=== PATIENT | female | born 1965 | race American Indian/Alaskan Native ===

== ENCOUNTER 2016-11-07 14:23 | Emergency (ER) | payer MEDICAID ==
[2016-11-07 16:47] LABS: Basophils % (Auto) 0.1 % (0.0-1.8); Hematocrit 38.9 % (30.3-42.9); Hemoglobin 13.4 gm/dl (10.1-14.3); Mean Corpuscular HGB Conc 34 % (30-34); Mean Corpuscular Hemoglobin 31 pg (28-32); Mean Corpuscular Volume 90 fl (79-97); Platelet Count 286 K/mm3 (140-440); Red Blood Count 4.35 M/mm3 (3.65-5.03); Red Cell Distribution Width 13.4 % (13.2-15.2); White Blood Count 7.6 K/mm3 (4.5-11.0)
[2016-11-07 18:54] LABS: Bilirubin,Urine NEG (Negative); Blood,Urine LG (Negative); Ketones,Urine NEG (Negative); Leukocyte Esterase,Urine NEG (Negative); Nitrite,Urine NEG (Negative)
[2016-11-07 18:55] LABS: RBC,Urine > 182.0 /HPF (0.0-6.0)
[2016-11-07] MEDS ORDERED: NORCO 7.5/325 PO ONE (23:01)
[2016-11-07] MEDS ORDERED: ZOFRAN ODT PO ONE (23:02)
--- NOTE | 2016-11-07 23:15 | Emergency Department Report ---
HPI - General Chief Complaint: Vaginal Bleeding Time Seen by Provider: 11/07/16 22:44 - HPI HPI: The patient is a 51-year-old female presents for evaluation of abdominal pain. The patient reports suprapubic lower abdominal pain for the past one to 2 weeks , crampy in quality, 10/10 in severity, constant for the past one day, although waxing and waning, and associated with vaginal bleeding. She shares that she has experienced irregular menstrual periods for the past year. Her menstrual periods only, every 2-3 months now, last period 3 months ago. The patient denies fever, generalized weakness, dyspnea, chest pain, hemoptysis, hematemesis , easy bruising or bleeding, hematuria, blood in the stool, dark tarry stool, diarrhea, dysuria, flank pain, genital discharge, inability to pass flatus. ED Past Medical Hx - Past Medical History Hx Hypertension: Yes Hx CVA: Yes Hx Congestive Heart Failure: No Hx Diabetes: No Hx Headaches / Migraines: Yes Hx Seizures: Yes (03/26/2016) Hx Psychiatric Treatment: Yes (COCAINE DRUG ABUSE, DEPRESSION) Hx Asthma: No Hx COPD: No Additional medical history: fibromyalgia. MS - Surgical History Additional Surgical History: c/s x 2, tubal ligation - Social History Smoking Status: Never Smoker Substance Use Type: None - Medications Home Medications: Home Medications Medication Instructions Recorded Confirmed Last Taken Type Aspirin [Aspirin BABY CHEW TAB] 81 mg PO QDAY #30 tab.chew 10/22/15 06/16/16 1 Day Ago Rx [address] [[address] Dr] 1,000 mg PO HS #30 tablet 10/22/15 06/16/16 1 Day Ago Rx 1000 Nitroglycerin [Nitrostat] 0.4 mg SL Q5M PRN #30 tablet 10/22/15 06/16/16 1 Day Ago Rx 0.4 Simvastatin [Zocor TAB] 10 mg PO QHS #30 tablet 10/22/15 06/16/16 1 Day Ago Rx 10 Trazodone HCl 150 mg PO HS #30 tablet 10/22/15 06/16/16 1 Day Ago Rx 150 Cyclobenzaprine [Flexeril 10 MG 10 mg PO TID PRN #15 tablet 03/10/16 06/16/16 1 Day Ago Rx TAB] 10 DULoxetine [Cymbalta] 30 mg PO QDAY 30 Days 03/30/16 06/16/16 1 Day Ago Rx 30 Gabapentin [Neurontin] 600 mg PO QPM 30 Days 03/30/16 06/16/16 1 Day Ago Rx 600 oxyCODONE /ACETAMINOPHEN [Percocet 1 tab PO Q6H PRN #10 tablet 03/30/16 Unknown Rx 5/325 mg] Clopidogrel Bisulfate [Plavix] 75 mg PO QDAY #30 tablet 04/13/16 06/16/16 1 Day Ago Rx 75 traMADol [Ultram] 50 mg PO Q6HR PRN #14 tablet 04/13/16 06/16/16 Unknown Rx Dicyclomine [Bentyl] 10 mg PO QID PRN #20 capsule 06/10/16 06/16/16 Unknown Rx Famotidine [Pepcid] 20 mg PO BID #10 tablet 06/10/16 06/16/16 Unknown Rx Ondansetron [Zofran Odt] 4 mg PO QID PRN #20 tab.rapdis 06/10/16 06/16/16 Unknown Rx Acetaminophen/Codeine [Tylenol #3] 1 tab PO Q6H PRN #20 tab 06/16/16 Unknown Rx Magnesium Oxide/Mag Aa Chelate 400 mg PO DAILY 06/16/16 06/16/16 Unknown History [Magnesium 300 mg Capsule] HYDROcodone/APAP 7.5-325 [[place] 1 each PO Q8HR PRN #12 tablet 11/07/16 Unknown Rx 7.5-325 mg TAB] ED Review of Systems ROS: Stated complaint: VAG BLEEDING 13 DAYS Other details as noted in HPI Constitutional: denies: fever ENT: denies: throat or neck pain Respiratory: denies: cough, shortness of breath Cardiovascular: denies: chest pain Endocrine: denies unexplained weight loss or gain Gastrointestinal: reports abdominal pain, nausea Genitourinary: reports vaginal bleeding Musculoskeletal: denies: leg swelling Skin: denies: rash Neurological: denies: headache Hematological/Lymphatic: denies: easy bleeding or easy bruising Psych: denies sadness or hopelessness Physical Exam - Physical Exam Vital Signs: Vital Signs 11/07/16 16:10 Temperature 97.6 F Pulse Rate 72 Respiratory 18 Rate Blood Pressure 130/91 O2 Sat by Pulse 100 Oximetry Physical Exam: General: well-nourished, well-developed, no acute distress Head: Normocephalic, atraumatic Eyes: normal sclera ENT: Mucous membranes are pink and moist Neck: trachea midline, neck supple, No neck stiffness, no cervical adenopathy Respiratory: Breath sounds equal bilaterally, no wheezing, rales, or rhonchi Cardio: S1 and S2 present, no murmurs, rubs, gallops, capillary refill is brisk Abdomen: Normoactive bowel sounds, soft abdomen, suprapubic tenderness present, no rigidity, no guarding or rebound tenderness Musc: No pitting edema Skin: No rash Neuro: no facial drooping, normal speech Psych: Normal affect ED Course Vital Signs 11/07/16 16:10 Temperature 97.6 F Pulse Rate 72 Respiratory 18 Rate Blood Pressure 130/91 O2 Sat by Pulse 100 Oximetry ED Medical Decision Making - Lab Data Result diagrams: 11/07/16 16:30 - Medical Decision Making The patient was seen and examined by myself. The patient is placed on a cardiac catheterization technologist and continuous pulse ox. On initial evaluation, the patient was found to be in no distress. The patient is given a tablet of norco for abdominal pain. Evaluation orders are placed. Lab results were non-concerning including platelets, hemoglobin, hematocrit, neg preg test, and urinalysis. The patient declines US of the pelvis to investigate for potential uterine mass. The patient was reevaluated and reported that her symptoms were markedly improved. The patient is stable for discharge with outpatient follow-up. The patient is given follow-up and return instructions, including to follow-up with the [facility]. The patient expressed understanding and agreed with the plan. The patient is discharged in stable condition. Critical care attestation.: If time is entered above; I have spent that time in minutes in the direct care of this critically ill patient, excluding procedure time. ED Disposition Clinical Impression: Acute suprapubic pain, Abnormal vaginal bleeding Disposition: DISCHARGED TO HOME OR SELFCARE Is pt being admited?: No Does the pt Need Aspirin: No Condition: Stable Instructions: Acute Abdominal Pain (ED), Menorrhagia (ED) Referrals: [facility] [Provider Group] - 3-5 Days NADIR WILSON MD [Staff Physician] - 3-5 Days Time of Disposition: 23:04
[2016-11-08 00:42] VITALS: BP 132/70
== END 2016-11-08 00:45 | disposition home or self-care (01) ==
LOC: ED 14:23
DX: N93.8 Other specified abnormal uterine and vaginal bleeding (principal); R10.30 Lower abdominal pain, unspecified; Z86.73 Personal history of transient ischemic attack (TIA), and cerebral infarction without residual deficits; G43.909 Migraine, unspecified, not intractable, without status migrainosus; R56.9 Unspecified convulsions; F14.10 Cocaine abuse, uncomplicated; F32.9 Major depressive disorder, single episode, unspecified; Z98.51 Tubal ligation status; Z79.82 Long term (current) use of aspirin; Z88.6 Allergy status to analgesic agent; Z88.8 Allergy status to other drugs, medicaments and biological substances
CPT/HCPCS: 36415; 81001; 81025; 85025; 86850; 86900; 86901; 99284; Q0162

== ENCOUNTER 2016-12-05 14:30 | Emergency (ER) | payer MEDICAID ==
[2016-12-05 16:13] LABS: Basophils % (Auto) 0.1 % (0.0-1.8); Hematocrit 40.7 % (30.3-42.9); Hemoglobin 13.5 gm/dl (10.1-14.3); Mean Corpuscular HGB Conc 33 % (30-34); Mean Corpuscular Hemoglobin 30 pg (28-32); Mean Corpuscular Volume 91 fl (79-97); Platelet Count 269 K/mm3 (140-440); Red Blood Count 4.48 M/mm3 (3.65-5.03); Red Cell Distribution Width 13.1 % (13.2-15.2); White Blood Count 4.7 K/mm3 (4.5-11.0)
[2016-12-05 16:32] LABS: Alanine Aminotransferase 6 units/L (7-56); Albumin 4.3 g/dL (3.9-5); Albumin/Globulin Ratio 1.3 %; Alkaline Phosphatase 89 units/L (35-129); Anion Gap 16 mmol/L; Bilirubin,Total 0.2 mg/dL (0.1-1.2); Blood Urea Nitrogen 10 mg/dL (7-17); Calcium 8.9 mg/dL (8.4-10.2); Carbon Dioxide 26 mmol/L (22-30); Chloride 100.9 mmol/L (98-107); Glucose 110 mg/dL (65-100); Lipase 26 units/L (13-60); Potassium 4.6 mmol/L (3.6-5.0); Sodium 138 mmol/L (137-145); Total Protein 7.6 g/dL (6.3-8.2)
[2016-12-05 18:11] LABS: Bilirubin,Urine NEG (Negative); Blood,Urine NEG (Negative); Ketones,Urine NEG (Negative); Leukocyte Esterase,Urine NEG (Negative); Mucus,Urine FEW /HPF; Nitrite,Urine NEG (Negative); Protein,Urine <15 mg/dL mg/dL (Negative); Urobilinogen,Urine < 2.0 mg/dL (<2.0)
[2016-12-06 00:27] VITALS: BP 111/82
== END 2016-12-05 15:51 | disposition left against medical advice (07) ==
LOC: ED 14:30
DX: R10.9 Unspecified abdominal pain (principal); R06.00 Dyspnea, unspecified; R19.7 Diarrhea, unspecified; R11.0 Nausea; R42 Dizziness and giddiness; I10 Essential (primary) hypertension; G43.909 Migraine, unspecified, not intractable, without status migrainosus; F32.9 Major depressive disorder, single episode, unspecified; I63.9 Cerebral infarction, unspecified; Z88.6 Allergy status to analgesic agent; Z88.8 Allergy status to other drugs, medicaments and biological substances; Z53.21 Procedure and treatment not carried out due to patient leaving prior to being seen by health care provider
CPT/HCPCS: 36415; 80053; 81001; 81025; 83690; 85025; 93005; 93010

== ENCOUNTER 2017-04-02 19:26 | Emergency (ER) | payer MEDICAID ==
--- NOTE | 2017-04-02 20:31 | Cat Scan Report ---
FINAL REPORT PROCEDURE: CT HEAD/BRAIN WO CON TECHNIQUE: Computerized tomography of the head was performed without contrast material. HISTORY: neuro deficits \T\lt; 6hrs or sx present upon awakening COMPARISON: Head CT dated March 26, 2016 FINDINGS: The visualized portions of the paranasal sinuses are clear. Mastoid air cells are clear. There is no calvarial fracture. There is no hydrocephalus. No acute intracranial hemorrhage or mass effect is seen. There is no evidence of acute CVA. IMPRESSION: No abnormalities are seen.
[2017-04-02 20:59] LABS: Basophils % (Auto) 0.1 % (0.0-1.8); Hematocrit 41.3 % (30.3-42.9); Hemoglobin 14.1 gm/dl (10.1-14.3); INR 0.92 (0.87-1.13); Mean Corpuscular HGB Conc 34 % (30-34); Mean Corpuscular Hemoglobin 31 pg (28-32); Mean Corpuscular Volume 90 fl (79-97); Platelet Count 291 K/mm3 (140-440); Red Blood Count 4.61 M/mm3 (3.65-5.03); Red Cell Distribution Width 13.7 % (13.2-15.2)
[2017-04-02 21:00] LABS: Partial Thromboplastin Time 36.9 Sec. (24.2-36.6)
[2017-04-02 21:09] LABS: Anion Gap 19 mmol/L; BUN/Creatinine Ratio 11.11; Blood Urea Nitrogen 10 mg/dL (7-17); Calcium 9.2 mg/dL (8.4-10.2); Carbon Dioxide 23 mmol/L (22-30); Chloride 103.8 mmol/L (98-107); Glucose 95 mg/dL (65-100); Potassium 3.9 mmol/L (3.6-5.0); Sodium 142 mmol/L (137-145)
--- NOTE | 2017-04-03 10:28 | Emergency Department Report ---
ED General Adult HPI - General Chief complaint: Weakness Stated complaint: BACK NUMBNESS X 3 DAYS Time Seen by Provider: 04/03/17 10:16 Source: patient, EMS (ems notes not available at time of chart dictation), RN notes reviewed, old records reviewed Mode of arrival: Ambulatory Limitations: No Limitations - History of Present Illness Initial comments: This is a 51-year-old female. I have evaluated her in the past. Past medical history includes fibromyalgia, multiple sclerosis, depression, chronic pain and substance abuse. Primary care doctor is Dr. Cho. Neurologist is Dr. Langston, with [facility]. The patient presents to the ER with a complaint of tingling on the dorsal aspect of her bilateral feet, and tingling to the palmar aspect of her bilateral hands. This has been going on for 4 days. There is no headache, neck pain, shortness of breath, abdominal pain weakness, bladder or bowel retention or incontinence, saddle anesthesia. the symptoms have been intermittent. They do not have any exacerbating or relieving factors. The patient also describes posterior trapezius pain that radiates around to her anterior chest wall. This has been present for 2 days. There is no nausea, vomiting, diaphoresis. There is no leg pain or leg swelling. No recent trips greater than 4 hours. No recent surgeries. The symptoms have been present for the past 48 hours. -: Gradual, days(s) Location: chest, back, left, right, upper extremity, lower extremity Severity scale (0 -10): 10 Consistency: intermittent Improves with: none Worsens with: none Associated Symptoms: denies: confusion, cough, diaphoresis, headaches, loss of appetite, malaise, nausea/vomiting, shortness of breath, syncope, weakness - Related Data Home Medications Medication Instructions Recorded Confirmed Last Taken Magnesium Oxide/Mag Aa Chelate 400 mg PO DAILY 06/16/16 06/16/16 Unknown [Magnesium 300 mg Capsule] Previous Rx's Medication Instructions Recorded Last Taken Type Aspirin [Aspirin BABY CHEW TAB] 81 mg PO QDAY #30 tab.chew 10/22/15 1 Day Ago Rx 81 Divalproex [Sloan Cunha] 1,000 mg PO HS #30 tablet 10/22/15 1 Day Ago Rx 1000 Nitroglycerin [Nitrostat] 0.4 mg SL Q5M PRN #30 tablet 02/05/16 1 Day Ago Rx 0.4 Simvastatin [Zocor TAB] 10 mg PO QHS #30 tablet 10/22/15 1 Day Ago Rx 10 Trazodone HCl 150 mg PO HS #30 tablet 10/22/15 1 Day Ago Rx 150 Cyclobenzaprine [Flexeril 10 MG 10 mg PO TID PRN #15 tablet 03/10/16 1 Day Ago Rx TAB] 10 DULoxetine [Cymbalta] 30 mg PO QDAY 30 Days 03/30/16 1 Day Ago Rx 30 Gabapentin [Neurontin] 600 mg PO QPM 30 Days 03/30/16 1 Day Ago Rx 600 oxyCODONE /ACETAMINOPHEN [Percocet 1 tab PO Q6H PRN #10 tablet 03/30/16 Unknown Rx 5/325 mg] Clopidogrel Bisulfate [Plavix] 75 mg PO QDAY #30 tablet 04/13/16 1 Day Ago Rx 75 traMADol [Ultram] 50 mg PO Q6HR PRN #14 tablet 04/13/16 Unknown Rx Dicyclomine [Bentyl] 10 mg PO QID PRN #20 capsule 06/10/16 Unknown Rx Famotidine [Pepcid] 20 mg PO BID #10 tablet 06/10/16 Unknown Rx Ondansetron [Zofran Odt] 4 mg PO QID PRN #20 tab.rapdis 06/10/16 Unknown Rx Acetaminophen/Codeine [Tylenol #3] 1 tab PO Q6H PRN #20 tab 06/16/16 Unknown Rx HYDROcodone/APAP 7.5-325 [[place] 1 each PO Q8HR PRN #12 tablet 11/07/16 Unknown Rx 7.5-325 mg TAB] Allergies Allergy/AdvReac Type Severity Reaction Status Date / Time aspirin Allergy Rash Verified 07/26/15 20:05 promethazine HCl Allergy Unknown Verified 07/26/15 20:05 [From Phenergan] ED Review of Systems ROS: Stated complaint: BACK NUMBNESS X 3 DAYS Other details as noted in HPI Constitutional: denies: fever Eyes: denies: eye discharge ENT: denies: epistaxis Respiratory: see HPI Cardiovascular: as per HPI Gastrointestinal: denies: vomiting Musculoskeletal: arthralgia Skin: denies: lesions Neurological: paresthesias Psychiatric: anxiety ED Past Medical Hx - Past Medical History Previous Medical History?: Yes Hx Hypertension: Yes Hx CVA: Yes (TIA's) Hx Congestive Heart Failure: No Hx Diabetes: No Hx Headaches / Migraines: Yes Hx Seizures: Yes (03/26/2016) Hx Psychiatric Treatment: Yes (COCAINE DRUG ABUSE, DEPRESSION, anxeity) Hx Asthma: No Hx COPD: No Additional medical history: fibromyalgia. fatty liver - Surgical History Past Surgical History?: Yes Additional Surgical History: c/s x 2, tubal ligation - Social History Smoking Status: Never Smoker Substance Use Type: None - Medications Home Medications: Home Medications Medication Instructions Recorded Confirmed Last Taken Type Aspirin [Aspirin BABY CHEW TAB] 81 mg PO QDAY #30 tab.chew 10/22/15 06/16/16 1 Day Ago Rx [address] [Depakote Dr] 1,000 mg PO HS #30 tablet 10/22/15 06/16/16 1 Day Ago Rx 1000 Nitroglycerin [Nitrostat] 0.4 mg SL Q5M PRN #30 tablet 10/22/15 06/16/16 1 Day Ago Rx 0.4 Simvastatin [Zocor TAB] 10 mg PO QHS #30 tablet 10/22/15 06/16/16 1 Day Ago Rx 10 Trazodone HCl 150 mg PO HS #30 tablet 10/22/15 06/16/16 1 Day Ago Rx 150 Cyclobenzaprine [Flexeril 10 MG 10 mg PO TID PRN #15 tablet 03/10/16 06/16/16 1 Day Ago Rx TAB] 10 DULoxetine [Cymbalta] 30 mg PO QDAY 30 Days 03/30/16 06/16/16 1 Day Ago Rx 30 Gabapentin [Neurontin] 600 mg PO QPM 30 Days 03/30/16 06/16/16 1 Day Ago Rx 600 oxyCODONE /ACETAMINOPHEN [Percocet 1 tab PO Q6H PRN #10 tablet 03/30/16 Unknown Rx 5/325 mg] Clopidogrel Bisulfate [Plavix] 75 mg PO QDAY #30 tablet 04/13/16 06/16/16 1 Day Ago Rx 75 traMADol [Ultram] 50 mg PO Q6HR PRN #14 tablet 04/13/16 06/16/16 Unknown Rx Dicyclomine [Bentyl] 10 mg PO QID PRN #20 capsule 06/10/16 06/16/16 Unknown Rx Famotidine [Pepcid] 20 mg PO BID #10 tablet 06/10/16 06/16/16 Unknown Rx Ondansetron [Zofran Odt] 4 mg PO QID PRN #20 tab.rapdis 06/10/16 06/16/16 Unknown Rx Acetaminophen/Codeine [Tylenol #3] 1 tab PO Q6H PRN #20 tab 06/16/16 Unknown Rx Magnesium Oxide/Mag Aa Chelate 400 mg PO DAILY 06/16/16 06/16/16 Unknown History [Magnesium 300 mg Capsule] HYDROcodone/APAP 7.5-325 [[place] 1 each PO Q8HR PRN #12 tablet 11/07/16 Unknown Rx 7.5-325 mg TAB] ED Physical Exam - General Limitations: No Limitations General appearance: alert, in no apparent distress - Head Head exam: Present: atraumatic, normocephalic - Eye Eye exam: Present: normal appearance, EOMI, other (visual acuity intact to finger counting, color perception, reading at a close distance). Absent: nystagmus - ENT ENT exam: Present: normal exam, normal orophraynx, mucous membranes moist, normal external ear exam - Neck Neck exam: Present: normal inspection, full ROM. Absent: tenderness, meningismus - Respiratory Respiratory exam: Present: normal lung sounds bilaterally. Absent: respiratory distress, wheezes, rales, rhonchi, stridor, chest wall tenderness, accessory muscle use, decreased breath sounds, prolonged expiratory - Cardiovascular Cardiovascular Exam: Present: normal rhythm, bradycardia, normal heart sounds. Absent: systolic murmur, diastolic murmur, rubs, gallop - GI/Abdominal GI/Abdominal exam: Present: soft, normal bowel sounds. Absent: distended, tenderness, guarding, rebound, rigid, pulsatile mass - Extremities Exam Extremities exam: Present: normal inspection, full ROM, normal capillary refill. Absent: pedal edema, joint swelling, calf tenderness - Back Exam Back exam: Present: normal inspection, full ROM. Absent: tenderness, CVA tenderness (R), CVA tenderness (L), muscle spasm, paraspinal tenderness, vertebral tenderness - Neurological Exam Neurological exam: Present: alert (visual acuity intact to finger counting, color perception, reading at a close distance), oriented X3, normal gait ( patient walks with a cane), other (Extraocular movements intact. Tongue midline. No facial droop. Facial sensation intact to light touch in the V1, V2 , V3 distribution bilaterally. 5 and 5 strength in 4 extremities.. Sensation is intact to light touch in 4 extremities.). Absent: motor sensory deficit ( sensation intact to light touch, pain, proprioception and 4 extremities. Downgoing plantar reflexes bilaterally.) - Psychiatric Psychiatric exam: Present: normal affect, normal mood - Skin Skin exam: Present: warm, dry, intact, normal color. Absent: rash ED Course Vital Signs 04/02/17 04/03/17 04/03/17 19:42 04:27 05:28 Temperature 98.7 F 97.3 F L Pulse Rate 58 L 60 63 Respiratory 18 18 12 Rate Blood Pressure 117/84 125/91 O2 Sat by Pulse 100 100 100 Oximetry 04/03/17 04/03/17 04/03/17 05:30 05:41 05:51 Temperature Pulse Rate 53 L 54 L 51 L Respiratory 12 13 13 Rate Blood Pressure 125/81 125/81 126/72 O2 Sat by Pulse 100 100 100 Oximetry 04/03/17 04/03/17 04/03/17 06:00 06:11 06:21 Temperature Pulse Rate 50 L 52 L 51 L Respiratory 16 14 11 L Rate Blood Pressure 131/80 131/80 146/77 O2 Sat by Pulse 100 100 100 Oximetry 04/03/17 04/03/17 04/03/17 06:30 06:41 06:51 Temperature Pulse Rate 55 L 60 57 L Respiratory 15 13 13 Rate Blood Pressure 145/82 145/82 132/78 O2 Sat by Pulse 100 100 100 Oximetry 04/03/17 04/03/17 04/03/17 07:00 07:11 07:21 Temperature Pulse Rate 60 65 57 L Respiratory 14 11 L 15 Rate Blood Pressure 124/77 124/77 131/76 O2 Sat by Pulse 100 100 100 Oximetry 04/03/17 04/03/17 04/03/17 07:30 07:41 07:51 Temperature Pulse Rate 53 L 53 L 56 L Respiratory 13 14 12 Rate Blood Pressure 126/81 126/81 119/79 O2 Sat by Pulse 100 100 100 Oximetry 04/03/17 04/03/17 04/03/17 08:00 08:11 08:21 Temperature Pulse Rate 56 L 62 56 L Respiratory 14 10 L 16 Rate Blood Pressure 123/76 131/76 125/78 O2 Sat by Pulse 100 100 100 Oximetry 04/03/17 04/03/17 04/03/17 08:31 08:33 08:41 Temperature Pulse Rate 60 55 L Respiratory 13 18 14 Rate Blood Pressure 117/66 123/76 O2 Sat by Pulse 99 99 Oximetry 04/03/17 04/03/17 04/03/17 08:51 09:00 09:11 Temperature Pulse Rate 68 59 L 56 L Respiratory 10 L 12 12 Rate Blood Pressure 122/77 116/77 116/77 O2 Sat by Pulse 100 100 100 Oximetry 04/03/17 04/03/17 04/03/17 09:21 09:30 09:41 Temperature Pulse Rate 60 54 L 57 L Respiratory 20 13 12 Rate Blood Pressure 115/67 113/75 113/75 O2 Sat by Pulse 100 100 100 Oximetry 04/03/17 04/03/17 04/03/17 09:50 10:00 10:11 Temperature Pulse Rate 76 57 L 62 Respiratory 14 14 15 Rate Blood Pressure 118/74 119/81 119/81 O2 Sat by Pulse 100 100 100 Oximetry 04/03/17 04/03/17 04/03/17 10:21 10:30 10:41 Temperature Pulse Rate 63 60 57 L Respiratory 12 9 L 14 Rate Blood Pressure 128/87 122/82 118/74 O2 Sat by Pulse 100 100 100 Oximetry 04/03/17 04/03/17 04/03/17 10:51 11:05 11:11 Temperature Pulse Rate 62 64 59 L Respiratory 18 15 15 Rate Blood Pressure 118/86 118/86 118/86 O2 Sat by Pulse 100 100 100 Oximetry 04/03/17 04/03/17 04/03/17 11:20 11:31 11:41 Temperature Pulse Rate 52 L 76 59 L Respiratory 15 15 13 Rate Blood Pressure 118/86 118/86 118/86 O2 Sat by Pulse 100 100 100 Oximetry 04/03/17 12:01 Temperature Pulse Rate 62 Respiratory 12 Rate Blood Pressure 118/86 O2 Sat by Pulse 100 Oximetry ED Medical Decision Making - Lab Data Result diagrams: 04/02/17 20:22 04/02/17 20:22 Vital Signs 04/02/17 04/03/17 04/03/17 19:42 04:27 05:28 Temperature 98.7 F 97.3 F L Pulse Rate 58 L 60 63 Respiratory 18 18 12 Rate Blood Pressure 117/84 125/91 O2 Sat by Pulse 100 100 100 Oximetry 04/03/17 04/03/17 04/03/17 05:30 05:41 05:51 Temperature Pulse Rate 53 L 54 L 51 L Respiratory 12 13 13 Rate Blood Pressure 125/81 125/81 126/72 O2 Sat by Pulse 100 100 100 Oximetry 04/03/17 04/03/17 04/03/17 06:00 06:11 06:21 Temperature Pulse Rate 50 L 52 L 51 L Respiratory 16 14 11 L Rate Blood Pressure 131/80 131/80 146/77 O2 Sat by Pulse 100 100 100 Oximetry 04/03/17 04/03/17 04/03/17 06:30 06:41 06:51 Temperature Pulse Rate 55 L 60 57 L Respiratory 15 13 13 Rate Blood Pressure 145/82 145/82 132/78 O2 Sat by Pulse 100 100 100 Oximetry 04/03/17 04/03/17 04/03/17 07:00 07:11 07:21 Temperature Pulse Rate 60 65 57 L Respiratory 14 11 L 15 Rate Blood Pressure 124/77 124/77 131/76 O2 Sat by Pulse 100 100 100 Oximetry 04/03/17 04/03/17 04/03/17 07:30 07:41 07:51 Temperature Pulse Rate 53 L 53 L 56 L Respiratory 13 14 12 Rate Blood Pressure 126/81 126/81 119/79 O2 Sat by Pulse 100 100 100 Oximetry 04/03/17 04/03/17 04/03/17 08:00 08:11 08:21 Temperature Pulse Rate 56 L 62 56 L Respiratory 14 10 L 16 Rate Blood Pressure 123/76 131/76 125/78 O2 Sat by Pulse 100 100 100 Oximetry 04/03/17 04/03/17 04/03/17 08:31 08:33 08:41 Temperature Pulse Rate 60 55 L Respiratory 13 18 14 Rate Blood Pressure 117/66 123/76 O2 Sat by Pulse 99 99 Oximetry 04/03/17 04/03/17 04/03/17 08:51 09:00 09:11 Temperature Pulse Rate 68 59 L 56 L Respiratory 10 L 12 12 Rate Blood Pressure 122/77 116/77 116/77 O2 Sat by Pulse 100 100 100 Oximetry 04/03/17 04/03/17 04/03/17 09:21 09:30 09:41 Temperature Pulse Rate 60 54 L 57 L Respiratory 20 13 12 Rate Blood Pressure 115/67 113/75 113/75 O2 Sat by Pulse 100 100 100 Oximetry 04/03/17 04/03/17 04/03/17 09:50 10:00 10:11 Temperature Pulse Rate 76 57 L 62 Respiratory 14 14 15 Rate Blood Pressure 118/74 119/81 119/81 O2 Sat by Pulse 100 100 100 Oximetry 04/03/17 04/03/17 04/03/17 10:21 10:30 10:41 Temperature Pulse Rate 63 60 57 L Respiratory 12 9 L 14 Rate Blood Pressure 128/87 122/82 118/74 O2 Sat by Pulse 100 100 100 Oximetry 04/03/17 04/03/17 04/03/17 10:51 11:05 11:11 Temperature Pulse Rate 62 64 59 L Respiratory 18 15 15 Rate Blood Pressure 118/86 118/86 118/86 O2 Sat by Pulse 100 100 100 Oximetry 04/03/17 04/03/17 04/03/17 11:20 11:31 11:41 Temperature Pulse Rate 52 L 76 59 L Respiratory 15 15 13 Rate Blood Pressure 118/86 118/86 118/86 O2 Sat by Pulse 100 100 100 Oximetry Lab Results 04/02/17 04/02/17 04/02/17 Range/Units 20:22 20:22 20:22 WBC 5.0 (4.5-11.0) K/mm3 RBC 4.61 (3.65-5.03) M/mm3 Hgb 14.1 (10.1-14.3) gm/dl Hct 41.3 (30.3-42.9) % MCV 90 (79-97) fl MCH 31 (28-32) pg MCHC 34 (30-34) % RDW 13.7 (13.2-15.2) % Plt Count 291 (140-440) K/mm3 Lymph % (Auto) 41.4 H (13.4-35.0) % [place] % (Auto) 7.5 H (0.0-7.3) % Eos % (Auto) 0.0 (0.0-4.3) % Baso % (Auto) 0.1 (0.0-1.8) % Lymph # 2.1 (1.2-5.4) K/mm3 [place] # 0.4 (0.0-0.8) K/mm3 Eos # 0.0 (0.0-0.4) K/mm3 Baso # 0.0 (0.0-0.1) K/mm3 Seg Neutrophils % 51.0 (40.0-70.0) % Seg Neutrophils # 2.6 (1.8-7.7) K/mm3 PT 12.3 (12.2-14.9) Sec. INR 0.92 (0.87-1.13) APTT 36.9 H (24.2-36.6) Sec. Thrombin Time (15.1-19.6) Sec. Sodium 142 (137-145) mmol/L Potassium 3.9 (3.6-5.0) mmol/L Chloride 103.8 (98-107) mmol/L Carbon Dioxide 23 (22-30) mmol/L Anion Gap 19 mmol/L BUN 10 (7-17) mg/dL Creatinine 0.9 (0.7-1.2) mg/dL Estimated GFR > 60 ml/min BUN/Creatinine Ratio 11.11 % Glucose 95 (65-100) mg/dL Calcium 9.2 (8.4-10.2) mg/dL Troponin T < 0.010 (0.00-0.029) ng/mL Urine Color (Yellow) Urine Turbidity (Clear) Urine pH (5.0-7.0) Ur Specific [place] (1.003-1.030) Urine Protein (Negative) mg/dL Urine Glucose (UA) (Negative) mg/dL Urine Ketones (Negative) mg/dL Urine Blood (Negative) Urine Nitrite (Negative) Urine Bilirubin (Negative) Urine Urobilinogen (<2.0) mg/dL Ur Leukocyte Esterase (Negative) Urine WBC (Auto) (0.0-6.0) /HPF Urine RBC (Auto) (0.0-6.0) /HPF U Epithel Cells (Auto) (0-13.0) /HPF Urine Mucus /HPF 04/02/17 04/03/17 04/03/17 Range/Units 20:22 10:32 10:46 WBC (4.5-11.0) K/mm3 RBC (3.65-5.03) M/mm3 Hgb (10.1-14.3) gm/dl Hct (30.3-42.9) % MCV (79-97) fl MCH (28-32) pg MCHC (30-34) % RDW (13.2-15.2) % Plt Count (140-440) K/mm3 Lymph % (Auto) (13.4-35.0) % [place] % (Auto) (0.0-7.3) % Eos % (Auto) (0.0-4.3) % Baso % (Auto) (0.0-1.8) % Lymph # (1.2-5.4) K/mm3 [place] # (0.0-0.8) K/mm3 Eos # (0.0-0.4) K/mm3 Baso # (0.0-0.1) K/mm3 Seg Neutrophils % (40.0-70.0) % Seg Neutrophils # (1.8-7.7) K/mm3 PT (12.2-14.9) Sec. INR (0.87-1.13) APTT (24.2-36.6) Sec. Thrombin Time 16.5 (15.1-19.6) Sec. Sodium (137-145) mmol/L Potassium (3.6-5.0) mmol/L Chloride (98-107) mmol/L Carbon Dioxide (22-30) mmol/L Anion Gap mmol/L BUN (7-17) mg/dL Creatinine (0.7-1.2) mg/dL Estimated GFR ml/min BUN/Creatinine Ratio % Glucose (65-100) mg/dL Calcium (8.4-10.2) mg/dL Troponin T < 0.010 (0.00-0.029) ng/mL Urine Color [place] (Yellow) Urine Turbidity Clear (Clear) Urine pH 5.0 (5.0-7.0) Ur Specific [place] 1.006 (1.003-1.030) Urine Protein <15 mg/dl (Negative) mg/dL Urine Glucose (UA) Neg (Negative) mg/dL Urine Ketones Neg (Negative) mg/dL Urine Blood Neg (Negative) Urine Nitrite Neg (Negative) Urine Bilirubin Neg (Negative) Urine Urobilinogen < 2.0 (<2.0) mg/dL Ur Leukocyte Esterase Neg (Negative) Urine WBC (Auto) < 1.0 (0.0-6.0) /HPF Urine RBC (Auto) 4.0 (0.0-6.0) /HPF U Epithel Cells (Auto) 1.0 (0-13.0) /HPF Urine Mucus Few /HPF - EKG Data -: EKG Interpreted by Me EKG shows normal: sinus rhythm - EKG Data 04/03/17 12:26 Sinus bradycardia, 56 bpm, T-wave inversion in aVL, T-wave inversion V2, not morphologically consistent with STEMI, appears unchanged from prior EKG from - Radiology Data Radiology results: report reviewed, image reviewed X-ray of the chest is negative. Noncontrast CT scan of the brain is negative for acute findings - Medical Decision Making differential diagnosis: peripheral neuropathy, ms flare, uti, pneumonia, pneumothorax, acs, fibromyalgia exacerbation assessment and plan: 51 y/o female with a primary complaint of peripheral numbness, not anatomically or historically consistent with stroke, with a GCS of 15, NIH score of 0. No pulmonary embolus or DVT risk factors, low risk by well's criteria, low risk by BALTAZAR score, low risk by Heart's score, x-ray the chest negative for pneumonia, UTI not consistent with urinalysis with multiple nonspecific complaints. Troponins negative 2. EKG unremarkable and unchanged compared to prior. Patient at low risk for major adverse cardiac event. Contacted the cardiology nurse practitioner on-call, Joselin Mcknight; she indicates the patient can contact the outpatient office to follow up at [phone]. I agree with this. It is not appear to be any emergent condition at this time, the patient will be discharged with instructions to follow-up with her outpatient neurologist, and outpatient cardiology. Return precautions are reviewed. Critical care attestation.: If time is entered above; I have spent that time in minutes in the direct care of this critically ill patient, excluding procedure time. ED Disposition Clinical Impression: Tingling Disposition: DC-01 TO HOME OR SELFCARE Is pt being admited?: No Does the pt Need Aspirin: No Condition: Stable Instructions: Peripheral Neuropathy (ED) Additional Instructions: Continue current outpatient medications. Follow up with the cardiology team within the next 3-5 days. Contact [phone] to arrange outpatient follow- up. Follow up with an outpatient neurologist within the next 10-[address] Schwab and Dr. Vizcarra are local neurology specialist. Return to the ER right away with weakness, chest pain, shortness of breath, confusion, inability to tolerate liquid feeds, new, worsening or different symptoms. Referrals: SALENA CHO DO [Primary Care Provider] - 3-5 Days GAGAN MONTOYA MD [Staff Physician] - 3-5 Days MIKEY SCHWAB MD [Staff Physician] - 3-5 Days TASNEEM VIZCARRA MD [Staff Physician] - 3-5 Days
[2017-04-03 10:54] LABS: Bilirubin,Urine NEG (Negative); Blood,Urine NEG (Negative); Ketones,Urine NEG (Negative); Leukocyte Esterase,Urine NEG (Negative); Mucus,Urine FEW /HPF; Nitrite,Urine NEG (Negative); Protein,Urine <15 mg/dL mg/dL (Negative); Urobilinogen,Urine < 2.0 mg/dL (<2.0); WBC,Urine < 1.0 /HPF (0.0-6.0)
--- NOTE | 2017-04-03 11:39 | XRay Report ---
ROUTINE CHEST, TWO VIEWS: PA and lateral views demonstrate the heart and mediastinal contour to be of normal size and shape. The lungs are clear and fully expanded and the soft tissues and bony structures are normal. IMPRESSION: Normal study.
[2017-04-03 11:55] VITALS: BP 118/86
== END 2017-04-03 13:17 | disposition home or self-care (01) ==
LOC: ED 19:26
DX: R20.2 Paresthesia of skin (principal); R20.0 Anesthesia of skin; R53.1 Weakness; I10 Essential (primary) hypertension; G43.909 Migraine, unspecified, not intractable, without status migrainosus; F32.9 Major depressive disorder, single episode, unspecified; F41.9 Anxiety disorder, unspecified; F14.10 Cocaine abuse, uncomplicated; Z86.73 Personal history of transient ischemic attack (TIA), and cerebral infarction without residual deficits; Z79.82 Long term (current) use of aspirin; Z88.6 Allergy status to analgesic agent; Z88.8 Allergy status to other drugs, medicaments and biological substances
CPT/HCPCS: 36415; 70450; 71020; 80048; 81001; 84484; 85025; 85610; 85670; 85730; 93005; 93010

== ENCOUNTER 2017-04-10 13:20 | Emergency (ER) | payer MEDICAID ==
[2017-04-10 13:30] VITALS: BP 102/68
--- NOTE | 2017-04-10 13:32 | Emergency Department Report ---
Chief Complaint: Back Pain/Injury Stated Complaint: LOWER BACKK PN Time Seen by Provider: 04/10/17 13:29 - HPI History of Present Illness: PT c/o atraumatic R low back pain. PT states she woke up with the pain a few days ago. PT States the pain became worse today. PT States the last time she had this, she had an infection. - ROS Review of Systems: - fevers - dysuria - Exam Vital Signs: Vital Signs 04/10/17 13:27 Temperature 97.1 F L Pulse Rate 63 Blood Pressure 102/68 O2 Sat by Pulse 100 Oximetry Physical Exam: no cva tenderness jael MSE screening note: Focused history and physical exam performed. Due to findings the following was ordered: labs ED Disposition for MSE Condition: Stable
[2017-04-10 16:07] LABS: Bilirubin,Urine NEG (Negative); Blood,Urine NEG (Negative); Ketones,Urine NEG (Negative); Leukocyte Esterase,Urine NEG (Negative); Mucus,Urine FEW /HPF; Nitrite,Urine NEG (Negative); Protein,Urine <15 mg/dL mg/dL (Negative); Urobilinogen,Urine < 2.0 mg/dL (<2.0)
--- NOTE | 2017-04-10 16:15 | Emergency Department Report ---
ED Back Pain/Injury HPI - General Chief Complaint: Back Pain/Injury Stated Complaint: LOWER BACKK PN Time Seen by Provider: 04/10/17 13:29 Source: patient, EMS Limitations: No Limitations - History of Present Illness Initial Comments: Patient here completed in of lower back pain and states she has a urinary tract infection because she said when her back hurts MSflaring up or she has a urinary tract infection. Denies any urinary burning frequency or urgency. Patient has history of back pain from multiple sclerosis. Denies any nausea or vomiting. Denies any abdominal pain. No [id number] medication taken. Pain is 7 out of 10 and aching on both sides of her lower back. Patient denies any fever or chills. Has any numbness or tumor into extremities. Denies any difficulty urinating. Is better with rest then [facility] physician but she couldn't get to see them today. Patient has a history of TIA migraine headache, hypertension, cocaine and drug abuse, depression and anxiety, fibromyalgia, fatty acid, multiple sclerosis she has a surgical history for 2 and tubal ligation. Patient has been seen at this facility multiple times for pain relief. MD Complaint: back pain Onset/Timin -: days(s) Similar Symptoms Previously: Yes Place: home Radiation: none Severity scale (0 -10): 7 Quality: aching Consistency: constant Improves With: immobilization Worsens With: movement Context: other ( with history of chronic back pain) Associated Symptoms: difficulty walking (from multiple sclerosis and she ambulates with a cane). denies: confusion, weakness, chest pain, numbness, cough, difficulty urinating, diaphoresis, incontinence, fever/chills, constipation, headaches, abdominal pain, loss of appetite, malaise, nausea/ vomiting, rash, seizure, shortness of breath, syncope Treatments Prior to Arrival: other (no medication per patient) - Related Data Home Medications Medication Instructions Recorded Confirmed Last Taken Magnesium Oxide/Mag Aa Chelate 400 mg PO DAILY 06/16/16 06/16/16 Unknown [Magnesium 300 mg Capsule] Previous Rx's Medication Instructions Recorded Last Taken Type Aspirin [Aspirin BABY CHEW TAB] 81 mg PO QDAY #30 tab.chew 10/22/15 1 Day Ago Rx 81 Divalproex [[place]] 1,000 mg PO HS #30 tablet 10/22/15 1 Day Ago Rx 1000 Nitroglycerin [Nitrostat] 0.4 mg SL Q5M PRN #30 tablet 10/22/15 1 Day Ago Rx 0.4 Simvastatin [Zocor TAB] 10 mg PO QHS #30 tablet 10/22/15 1 Day Ago Rx 10 Trazodone HCl 150 mg PO HS #30 tablet 10/22/15 1 Day Ago Rx 150 Cyclobenzaprine [Flexeril 10 MG 10 mg PO TID PRN #15 tablet 03/10/16 1 Day Ago Rx TAB] 10 DULoxetine [Cymbalta] 30 mg PO QDAY 30 Days 03/30/16 1 Day Ago Rx 30 Gabapentin [Neurontin] 600 mg PO QPM 30 Days 03/30/16 1 Day Ago Rx 600 oxyCODONE /ACETAMINOPHEN [Percocet 1 tab PO Q6H PRN #10 tablet 03/30/16 Unknown Rx 5/325 mg] Clopidogrel Bisulfate [Plavix] 75 mg PO QDAY #30 tablet 04/13/16 1 Day Ago Rx 75 traMADol [Ultram] 50 mg PO Q6HR PRN #14 tablet 04/13/16 Unknown Rx Dicyclomine [Bentyl] 10 mg PO QID PRN #20 capsule 06/10/16 Unknown Rx Famotidine [Pepcid] 20 mg PO BID #10 tablet 06/10/16 Unknown Rx Ondansetron [Zofran Odt] 4 mg PO QID PRN #20 tab.rapdis 06/10/16 Unknown Rx Acetaminophen/Codeine [Tylenol #3] 1 tab PO Q6H PRN #20 tab 06/16/16 Unknown Rx HYDROcodone/APAP 7.5-325 [[place] 1 each PO Q8HR PRN #12 tablet 11/07/16 Unknown Rx 7.5-325 mg TAB] traMADol [Ultram 50 MG tab] 50 mg PO Q6HR PRN #20 tablet 04/10/17 Unknown Rx Allergies Allergy/AdvReac Type Severity Reaction Status Date / Time aspirin Allergy Rash Verified 07/26/15 20:05 promethazine HCl Allergy Unknown Verified 07/26/15 20:05 [From Phenergan] ED Review of Systems ROS: Stated complaint: LOWER BACKK PN Other details as noted in HPI Comment: All other systems reviewed and negative Constitutional: denies: chills, fever ENT: denies: throat pain Respiratory: no symptoms reported Cardiovascular: denies: chest pain, palpitations, dyspnea on exertion, edema, syncope Gastrointestinal: denies: abdominal pain, nausea, vomiting, diarrhea Genitourinary: denies: urgency, dysuria, frequency, hematuria, discharge, abnormal menses, dyspareunia Musculoskeletal: back pain. denies: joint swelling, arthralgia, myalgia Skin: denies: rash Neurological: abnormal gait (with chronic gait problems due to multiple sclerosis). denies: headache, weakness, numbness, paresthesias, confusion Psychiatric: denies: anxiety ED Past Medical Hx - Past Medical History Previous Medical History?: Yes Hx Hypertension: Yes Hx CVA: Yes (TIA's) Hx Congestive Heart Failure: No Hx Diabetes: No Hx Headaches / Migraines: Yes Hx Seizures: Yes (03/26/2016) Hx Psychiatric Treatment: Yes (COCAINE DRUG ABUSE, DEPRESSION, anxeity) Hx Asthma: No Hx COPD: No Additional medical history: fibromyalgia. MS. fatty liver - Surgical History Past Surgical History?: Yes Additional Surgical History: c/s x 2, tubal ligation - Family History Family history: hypertension - Social History Smoking Status: Never Smoker Substance Use Type: None Other Social History: She lives by herself and single - Medications Home Medications: Home Medications Medication Instructions Recorded Confirmed Last Taken Type Aspirin [Aspirin BABY CHEW TAB] 81 mg PO QDAY #30 tab.chew 10/22/15 06/16/16 1 Day Ago Rx [address] [Sloan Dr] 1,000 mg PO HS #30 tablet 10/22/15 06/16/16 1 Day Ago Rx 1000 Nitroglycerin [Nitrostat] 0.4 mg SL Q5M PRN #30 tablet 10/22/15 06/16/16 1 Day Ago Rx 0.4 Simvastatin [Zocor TAB] 10 mg PO QHS #30 tablet 10/22/15 06/16/16 1 Day Ago Rx 10 Trazodone HCl 150 mg PO HS #30 tablet 10/22/15 06/16/16 1 Day Ago Rx 150 Cyclobenzaprine [Flexeril 10 MG 10 mg PO TID PRN #15 tablet 03/10/16 06/16/16 1 Day Ago Rx TAB] 10 DULoxetine [Cymbalta] 30 mg PO QDAY 30 Days 03/30/16 06/16/16 1 Day Ago Rx 30 Gabapentin [Neurontin] 600 mg PO QPM 30 Days 03/30/16 06/16/16 1 Day Ago Rx 600 oxyCODONE /ACETAMINOPHEN [Percocet 1 tab PO Q6H PRN #10 tablet 03/30/16 Unknown Rx 5/325 mg] Clopidogrel Bisulfate [Plavix] 75 mg PO QDAY #30 tablet 04/13/16 06/16/16 1 Day Ago Rx 75 traMADol [Ultram] 50 mg PO Q6HR PRN #14 tablet 04/13/16 06/16/16 Unknown Rx Dicyclomine [Bentyl] 10 mg PO QID PRN #20 capsule 06/10/16 06/16/16 Unknown Rx Famotidine [Pepcid] 20 mg PO BID #10 tablet 06/10/16 06/16/16 Unknown Rx Ondansetron [Zofran Odt] 4 mg PO QID PRN #20 tab.rapdis 06/10/16 06/16/16 Unknown Rx Acetaminophen/Codeine [Tylenol #3] 1 tab PO Q6H PRN #20 tab 06/16/16 Unknown Rx Magnesium Oxide/Mag Aa Chelate 400 mg PO DAILY 06/16/16 06/16/16 Unknown History [Magnesium 300 mg Capsule] HYDROcodone/APAP 7.5-325 [[place] 1 each PO Q8HR PRN #12 tablet 11/07/16 Unknown Rx 7.5-325 mg TAB] traMADol [Ultram 50 MG tab] 50 mg PO Q6HR PRN #20 tablet 04/10/17 Unknown Rx ED Physical Exam - General Limitations: No Limitations General appearance: alert, in no apparent distress - Head Head exam: Present: atraumatic, normocephalic, normal inspection - Eye Eye exam: Present: normal appearance, PERRL, EOMI Pupils: Present: normal accommodation - ENT ENT exam: Present: normal exam, normal orophraynx - Neck Neck exam: Present: normal inspection, full ROM. Absent: tenderness, meningismus, lymphadenopathy, thyromegaly - Respiratory Respiratory exam: Present: normal lung sounds bilaterally. Absent: respiratory distress, chest wall tenderness - Cardiovascular Cardiovascular Exam: Present: regular rate, normal rhythm, normal heart sounds - GI/Abdominal GI/Abdominal exam: Present: soft, normal bowel sounds. Absent: distended, tenderness, guarding, rebound, rigid - Extremities Exam Extremities exam: Present: normal inspection, full ROM, normal capillary refill , calf tenderness. Absent: tenderness, pedal edema, joint swelling - Back Exam Back exam: Present: normal inspection, other. Absent: full ROM (shoulder limited range of motion which is chronic due to chronic pain syndrome and chronic back pain and multiple sclerosis), tenderness, CVA tenderness (R), CVA tenderness (L), muscle spasm, paraspinal tenderness, vertebral tenderness, rash noted - Neurological Exam Neurological exam: Present: alert, oriented X3, abnormal gait (normal gait due to chronic pain syndrome, back pain and multiple sclerosis. She ambulates with a cane), motor sensory deficit (positive motor deficit from multiple sclerosis) . Absent: reflexes normal - Psychiatric Psychiatric exam: Present: normal affect, normal mood - Skin Skin exam: Present: warm, dry, intact, normal color. Absent: rash ED Course Vital Signs 04/10/17 13:27 Temperature 97.1 F L Pulse Rate 63 Blood Pressure 102/68 O2 Sat by Pulse 100 Oximetry Respiratory rate is 18 - Reevaluation(s) Reevaluation #1: 04/10/17 16:43 Patient given Percocet 2 tablets emergency room for chronic pain. Urinalysis negative for bacterial infection. ED Medical Decision Making - Lab Data Lab Results 04/10/17 Range/Units 15:36 Urine Color Yellow (Yellow) Urine Turbidity Clear (Clear) Urine pH 8.0 H (5.0-7.0) Ur Specific [place] 1.021 (1.003-1.030) Urine Protein <15 mg/dl (Negative) mg/dL Urine Glucose (UA) Neg (Negative) mg/dL Urine Ketones Neg (Negative) mg/dL Urine Blood Neg (Negative) Urine Nitrite Neg (Negative) Urine Bilirubin Neg (Negative) Urine Urobilinogen < 2.0 (<2.0) mg/dL Ur Leukocyte Esterase Neg (Negative) Urine WBC (Auto) 1.0 (0.0-6.0) /HPF Urine RBC (Auto) 2.0 (0.0-6.0) /HPF U Epithel Cells (Auto) 1.0 (0-13.0) /HPF Urine Mucus Few /HPF - Medical Decision Making MDM: Assessment/plan ED course: Pt here complaining of back pain for 3 days. Reports she either has a flare up of her chronic back pain or a urinary tract infection. Urinalysis revealed no infection. Patient with multiple comorbidities to include fibromyalgia and chronic pain syndrome MS and chronic back pain with depression and anxiety and history of cocaine and drug abuse. She has been seen here in the past for pain control. Patient given Percocet in the emergency room and I told her she will need to go to see her primary care and neurologist for chronic pain management. She voiced understanding of treatment plan and diagnosis and awaiting Medicaid transport to be discharged from ED. Diagnostic/laboratory: Her analysis negative for bacterial infection Diagnosis: Acute exacerbation of chronic back pain. History of multiple sclerosis, fibromyalgia, anxiety and depression, polysubstance abuse. Abnormal gait due to multiple sclerosis. Medications: Patient given Percocet 5/325 2 tablets emergency room for pain control to her lower back. Condition discharged home with prescription for Ultram and to follow up with her neurologist and her primary care physician for pain management. Discharged home via Medicaid transport. Critical care attestation.: If time is entered above; I have spent that time in minutes in the direct care of this critically ill patient, excluding procedure time. ED Disposition Clinical Impression: Acute exacerbation of chronic low back pain Disposition: - TO HOME OR SELFCARE Is pt being admited?: No Does the pt Need Aspirin: No Condition: Stable Instructions: Chronic Back Pain (ED) Additional Instructions: Please call your neurologist and your primary care physician in the morning to schedule an appointment for chronic pain. Please take tramadol as instructed and please avoid operating heavy machinery or driving because this medication will cause drowsiness Increase your fluid intake. Prescriptions: traMADol [Ultram 50 MG tab] 50 mg PO Q6HR PRN #20 tablet PRN Reason: Pain Referrals: PRIMARY CARE,MD [Primary Care Provider] - 2-3 Days you're, neurologist [Other] - 2-3 Days Forms: Work/School Release Form(ED)
[2017-04-10] MEDS ORDERED: PERCOCET 5/325 PO ONE (16:16)
== END 2017-04-10 16:59 | disposition home or self-care (01) ==
LOC: ED 13:20
DX: M54.5 Low back pain (principal); I10 Essential (primary) hypertension; F41.9 Anxiety disorder, unspecified; F14.10 Cocaine abuse, uncomplicated; F32.9 Major depressive disorder, single episode, unspecified; G43.909 Migraine, unspecified, not intractable, without status migrainosus; Z79.82 Long term (current) use of aspirin; Z86.73 Personal history of transient ischemic attack (TIA), and cerebral infarction without residual deficits
CPT/HCPCS: 81001; 99284

== ENCOUNTER 2017-08-29 14:04 | Emergency (ER) | payer MEDICAID ==
[2017-08-29] MEDS ORDERED: TORADOL IV ONE (15:12)
[2017-08-29] MEDS ORDERED: ZOFRAN IV ONE (15:12)
--- NOTE | 2017-08-29 15:15 | Emergency Department Report ---
Chief Complaint: Abdominal Pain Stated Complaint: ABD PAIN Time Seen by Provider: 08/29/17 14:42 - HPI History of Present Illness: Patient is a 51-year-old female who is presenting with lower abdominal and back pain. Patient states that her last menstrual period was in October 2016. Patient states she has not had any bleeding since however yesterday started having heavy vaginal bleeding with clots of blood. Patient states that she has aching 7 out of 10 pain. Patient denies any fever nausea vomiting dysuria or urinary frequency at this time. - Exam Vital Signs: Vital Signs 08/29/17 14:08 Temperature 97.5 F L Pulse Rate 69 Respiratory 16 Rate Blood Pressure 145/87 O2 Sat by Pulse 100 Oximetry Physical Exam: Physical exam HEENT general exam are normal heart S1-S2 no murmurs gallops or rubs lungs are clear to auscultation bilaterally abdomen soft nontender except for the suprapubic area. Patient has generalized lumbar tenderness. Extremity exam is normal with no evidence of a deformity skin exam normal neuro exam grossly normal as well MSE screening note: Focused history and physical exam performed. Due to findings the following was ordered: ED Disposition for MSE Condition: Stable Instructions: Abdominal Pain (ED) Referrals: PRIMARY CARE, [Primary Care Provider] - 3-5 Days
[2017-08-29 15:46] LABS: Basophils % (Auto) 0.4 % (0.0-1.8); Eosinophils % (Auto) 3.4 % (0.0-4.3); Hematocrit 39.8 % (30.3-42.9); Mean Corpuscular HGB Conc 33 % (30-34); Mean Corpuscular Hemoglobin 30 pg (28-32); Mean Corpuscular Volume 92 fl (79-97); Platelet Count 320 K/mm3 (140-440); Red Blood Count 4.33 M/mm3 (3.65-5.03); Red Cell Distribution Width 13.7 % (13.2-15.2); White Blood Count 8.8 K/mm3 (4.5-11.0)
[2017-08-29 15:52] LABS: Anion Gap 16 mmol/L; BUN/Creatinine Ratio 20; Blood Urea Nitrogen 12 mg/dL (7-17); Calcium 8.8 mg/dL (8.4-10.2); Carbon Dioxide 28 mmol/L (22-30); Chloride 102.9 mmol/L (98-107); Glucose 85 mg/dL (65-100); Potassium 4.2 mmol/L (3.6-5.0); Sodium 143 mmol/L (137-145)
[2017-08-29 16:06] LABS: Bilirubin,Urine NEG (Negative); Blood,Urine LG (Negative); Ketones,Urine NEG (Negative); Leukocyte Esterase,Urine TR (Negative); Mucus,Urine FEW /HPF; Nitrite,Urine NEG (Negative); Protein,Urine <15 mg/dL mg/dL (Negative); Urobilinogen,Urine < 2.0 mg/dL (<2.0)
--- NOTE | 2017-08-29 19:25 | Ultrasound Report ---
FINAL REPORT PROCEDURE: Transabdominal pelvic ultrasound TECHNIQUE: Real-time transabdominal sonography in multiple planes of pelvis was performed with image documentation. This examination was performed without Doppler. Vascular abnormalities, including ovarian torsion, will not be detectable without Doppler evaluation. CPT 18369 HISTORY: Abdominal Pain COMPARISON: Transvaginal pelvic ultrasound also performed today. FINDINGS: The report for this exam was generated using images from both the transabdominal scan and the transvaginal scan both of which were performed today. The uterus is anteverted. No uterine masses are identified. There is a large fluid collection in the lower uterine segment with heterogeneous echogenicity. Etiology is uncertain. I cannot exclude an ongoing spontaneous . Correlation with test is recommended. The uterus measures 9.0 x 4.6 x 5.0 centimeter. The endometrial stripe toward the fundus of the uterus measures 12 millimeters in thickness. The right ovary is not visualized. There is a cystic structure visualized in the left ovary measuring 6.1 x 3.6 x 4.8 centimeter. There appears to be a septation or asymmetric wall thickening posteriorly. IMPRESSION: Large heterogeneous fluid collection lower uterine segment projecting towards the cervix as described. Spontaneous hemorrhage suspected. I cannot exclude ongoing spontaneous . Correlation with test recommended. Large complex cyst left ovary. Etiology is uncertain. Both benign and malignant cystic change of the left ovary could present in this manner. The right ovary was not visualized.
--- NOTE | 2017-08-29 19:28 | Ultrasound Report ---
FINAL REPORT PROCEDURE: US TRANSVAGINAL TECHNIQUE: Real-time transvaginal sonography in multiple planes of the pelvis was performed with image documentation. This examination was performed without Doppler. Vascular abnormalities, including ovarian torsion, will not be detectable without Doppler evaluation. CPT 19615 HISTORY: pelvic pain COMPARISON: Prior trans abdominal pelvic ultrasound performed earlier today. FINDINGS: The report for this exam was generated using images from both the transabdominal scan and the transvaginal scan both of which were performed today. The uterus is anteverted. No uterine masses are identified. There is a large fluid collection in the lower uterine segment with heterogeneous echogenicity. Etiology is uncertain. I cannot exclude an ongoing spontaneous . Correlation with test is recommended. The uterus measures 9.0 x 4.6 x 5.0 centimeter. The endometrial stripe toward the fundus of the uterus measures 12 millimeters in thickness. The right ovary is not visualized. There is a cystic structure visualized in the left ovary measuring 6.1 x 3.6 x 4.8 centimeter. There appears to be a septation or asymmetric wall thickening posteriorly. IMPRESSION: Large heterogeneous fluid collection lower uterine segment projecting towards the cervix as described. Spontaneous hemorrhage suspected. I cannot exclude ongoing spontaneous . Correlation with test recommended. Large complex cyst left ovary. Etiology is uncertain. Both benign and malignant cystic change of the left ovary could present in this manner. The right ovary was not visualized. .
[2017-08-29 19:44] VITALS: BP 130/74
--- NOTE | 2017-08-29 19:49 | Emergency Department Report ---
ED Female HPI - General Chief complaint: Abdominal Pain Stated complaint: ABD PAIN Time Seen by Provider: 08/29/17 14:42 Source: patient Mode of arrival: Ambulatory Limitations: No Limitations - History of Present Illness Initial comments: 51-year-old female past medical history CVA on Plavix, GERD, fibromyalgia presents with complaint of persistent vaginal bleeding for several weeks. Patient states that she has had increase in number of clots complaining of lower abdominal cramping radiating to the back. Denies any fevers chills nausea or vomiting. States that she is menopausal. States she is having to change through 4-5 pads per day. Complaint: vaginal bleeding -: week(s) Quality: cramping Consistency: constant Improves with: none Worsens with: none Are you Now?: No Associated Symptoms: vaginal bleeding - Related Data Sexually active: Yes Home Medications Medication Instructions Recorded Confirmed Last Taken Magnesium Oxide/Magnesium 400 mg PO DAILY 06/16/16 06/16/16 Unknown [Magnesium 300 mg Capsule] Previous Rx's Medication Instructions Recorded Last Taken Type Aspirin [Aspirin BABY CHEW TAB] 81 mg PO QDAY #30 tab.chew 10/22/15 1 Day Ago Rx ~06/09/[address] [Sloan Cunha] 1,000 mg PO HS #30 tablet 10/22/15 1 Day Ago Rx ~06/09/16 1000 Nitroglycerin [Nitrostat] 0.4 mg SL Q5M PRN #30 tablet 10/22/15 1 Day Ago Rx ~06/09/16 0.4 Simvastatin [Zocor TAB] 10 mg PO QHS #30 tablet 10/22/15 1 Day Ago Rx ~06/09/16 10 Trazodone HCl 150 mg PO HS #30 tablet 10/22/15 1 Day Ago Rx ~06/09/16 150 Cyclobenzaprine [Flexeril 10 MG 10 mg PO TID PRN #15 tablet 03/10/16 1 Day Ago Rx TAB] ~06/09/16 10 DULoxetine [Cymbalta] 30 mg PO QDAY 30 Days capsule 03/30/16 1 Day Ago Rx ~06/09/16 30 Gabapentin [Neurontin] 600 mg PO QPM 30 Days capsule 03/30/16 1 Day Ago Rx ~06/09/16 600 oxyCODONE /ACETAMINOPHEN [Percocet 1 tab PO Q6H PRN #10 tablet 03/30/16 Unknown Rx 5/325 mg] Clopidogrel Bisulfate [Plavix] 75 mg PO QDAY #30 tablet 04/13/16 1 Day Ago Rx ~06/09/16 75 traMADol [Ultram] 50 mg PO Q6HR PRN #14 tablet 04/13/16 Unknown Rx Dicyclomine [Bentyl] 10 mg PO QID PRN #20 capsule 06/10/16 Unknown Rx Famotidine [Pepcid] 20 mg PO BID #10 tablet 06/10/16 Unknown Rx Ondansetron [Zofran Odt] 4 mg PO QID PRN #20 tab.rapdis 06/10/16 Unknown Rx Acetaminophen/Codeine [Tylenol #3] 1 tab PO Q6H PRN #20 tab 06/16/16 Unknown Rx HYDROcodone/APAP 7.5-325 [[place] 1 each PO Q8HR PRN #12 tablet 11/07/16 Unknown Rx 7.5-325 mg TAB] traMADol [Ultram 50 MG tab] 50 mg PO Q6HR PRN #20 tablet 04/10/17 Unknown Rx Acetaminophen [Non-Aspirin Extra 500 mg PO Q8H PRN #30 tablet 08/29/17 Unknown Rx Strength] Acetaminophen/Codeine [Tylenol 1 tab PO Q6H PRN #15 tab 08/29/17 Unknown Rx /Codeine # 3 tab] Ferrous Sulfate [Iron] 325 mg PO QDAY #30 tablet 08/29/17 Unknown Rx Allergies Allergy/AdvReac Type Severity Reaction Status Date / Time aspirin Allergy Rash Verified 07/26/15 20:05 promethazine HCl Allergy Unknown Verified 07/26/15 20:05 [From Phenergan] ED Review of Systems ROS: Stated complaint: ABD PAIN Other details as noted in HPI Constitutional: denies: chills, fever Eyes: denies: eye pain, eye discharge, vision change ENT: denies: ear pain, throat pain Respiratory: denies: cough, shortness of breath, wheezing Cardiovascular: denies: chest pain, palpitations Endocrine: no symptoms reported Gastrointestinal: denies: abdominal pain, nausea, diarrhea Genitourinary: denies: urgency, dysuria, discharge Musculoskeletal: denies: back pain, joint swelling, arthralgia Skin: denies: rash, lesions Neurological: denies: headache, weakness, paresthesias Psychiatric: denies: anxiety, depression Hematological/Lymphatic: denies: easy bleeding, easy bruising ED Past Medical Hx - Past Medical History Hx Hypertension: Yes Hx CVA: Yes (TIA's) Hx Congestive Heart Failure: No Hx Diabetes: No Hx Headaches / Migraines: Yes Hx Seizures: Yes (03/26/2016) Hx Psychiatric Treatment: Yes (COCAINE DRUG ABUSE, DEPRESSION, anxeity) Hx Asthma: No Hx COPD: No Additional medical history: fibromyalgia. MS. fatty liver - Surgical History Additional Surgical History: c/s x 2, tubal ligation - Social History Smoking Status: Former Smoker Substance Use Type: Cocaine - Medications Home Medications: Home Medications Medication Instructions Recorded Confirmed Last Taken Type Aspirin [Aspirin BABY CHEW TAB] 81 mg PO QDAY #30 tab.chew 10/22/15 06/16/16 1 Day Ago Rx ~06/09/[address] [Depakote Dr] 1,000 mg PO HS #30 tablet 10/22/15 06/16/16 1 Day Ago Rx ~06/09/16 1000 Nitroglycerin [Nitrostat] 0.4 mg SL Q5M PRN #30 tablet 10/22/15 06/16/16 1 Day Ago Rx ~06/09/16 0.4 Simvastatin [Zocor TAB] 10 mg PO QHS #30 tablet 10/22/15 06/16/16 1 Day Ago Rx ~06/09/16 10 Trazodone HCl 150 mg PO HS #30 tablet 10/22/15 06/16/16 1 Day Ago Rx ~06/09/16 150 Cyclobenzaprine [Flexeril 10 MG 10 mg PO TID PRN #15 tablet 03/10/16 06/16/16 1 Day Ago Rx TAB] ~06/09/16 10 DULoxetine [Cymbalta] 30 mg PO QDAY 30 Days capsule 03/30/16 06/16/16 1 Day Ago Rx ~06/09/16 30 Gabapentin [Neurontin] 600 mg PO QPM 30 Days capsule 03/30/16 06/16/16 1 Day Ago Rx ~06/09/16 600 oxyCODONE /ACETAMINOPHEN [Percocet 1 tab PO Q6H PRN #10 tablet 03/30/16 Unknown Rx 5/325 mg] Clopidogrel Bisulfate [Plavix] 75 mg PO QDAY #30 tablet 04/13/16 06/16/16 1 Day Ago Rx ~06/09/16 75 traMADol [Ultram] 50 mg PO Q6HR PRN #14 tablet 04/13/16 06/16/16 Unknown Rx Dicyclomine [Bentyl] 10 mg PO QID PRN #20 capsule 06/10/16 06/16/16 Unknown Rx Famotidine [Pepcid] 20 mg PO BID #10 tablet 06/10/16 06/16/16 Unknown Rx Ondansetron [Zofran Odt] 4 mg PO QID PRN #20 tab.rapdis 06/10/16 06/16/16 Unknown Rx Acetaminophen/Codeine [Tylenol #3] 1 tab PO Q6H PRN #20 tab 06/16/16 Unknown Rx Magnesium Oxide/Magnesium 400 mg PO DAILY 06/16/16 06/16/16 Unknown History [Magnesium 300 mg Capsule] HYDROcodone/APAP 7.5-325 [[place] 1 each PO Q8HR PRN #12 tablet 11/07/16 Unknown Rx 7.5-325 mg TAB] traMADol [Ultram 50 MG tab] 50 mg PO Q6HR PRN #20 tablet 04/10/17 Unknown Rx Acetaminophen [Non-Aspirin Extra 500 mg PO Q8H PRN #30 tablet 08/29/17 Unknown Rx Strength] Acetaminophen/Codeine [Tylenol 1 tab PO Q6H PRN #15 tab 08/29/17 Unknown Rx /Codeine # 3 tab] Ferrous Sulfate [Iron] 325 mg PO QDAY #30 tablet 08/29/17 Unknown Rx ED Physical Exam - General Limitations: No Limitations General appearance: alert, in no apparent distress - Head Head exam: Present: atraumatic, normocephalic - Eye Eye exam: Present: normal appearance, PERRL, EOMI - ENT ENT exam: Present: mucous membranes moist - Neck Neck exam: Present: normal inspection - Respiratory Respiratory exam: Present: normal lung sounds bilaterally. Absent: respiratory distress - Cardiovascular Cardiovascular Exam: Present: regular rate, normal rhythm. Absent: systolic murmur, diastolic murmur, rubs, gallop - GI/Abdominal GI/Abdominal exam: Present: soft, normal bowel sounds - External exam: Present: normal external exam Speculum exam: Present: vaginal bleeding Bi-manual exam: Present: normal bi-manual exam - Extremities Exam Extremities exam: Present: normal inspection - Back Exam Back exam: Present: normal inspection - Neurological Exam Neurological exam: Present: alert, oriented X3 - Psychiatric Psychiatric exam: Present: normal affect, normal mood - Skin Skin exam: Present: warm, dry, intact, normal color. Absent: rash ED Course Vital Signs 08/29/17 08/29/17 14:08 19:40 Temperature 97.5 F L 98.6 F Pulse Rate 69 60 Respiratory 16 18 Rate Blood Pressure 145/87 130/74 O2 Sat by Pulse 100 98 Oximetry ED Medical Decision Making - Lab Data Result diagrams: 08/29/17 15:16 08/29/17 15:16 - Medical Decision Making A/P: Postmenopausal vaginal bleeding 1-lab work and ultrasound report reviewed with Dr. Azul. Patient does have a lower uterine segment fluid collection and left-sided ovarian complex cyst. I reviewed these results with Dr. Azul before discharge. Clinical plan is to discharge with follow-up with [facility] as patient has normal vital signs is hemodynamically stable tolerating by mouth fluid and food without difficulty and is not actively hemorrhaging vaginally. Blood flow is slow and has persisted for several weeks as per patient. 2-I informed patient that she has a visible ovarian cystic structure on ultrasound and that she must follow-up with [facility] for appropriate continued care 3-advised patient to return to the ED for fever chills nausea vomiting or inability to tolerate by mouth or significant increase in vaginal bleeding 4- pain control when necessary. Iron supplementation when necessary Critical care attestation.: If time is entered above; I have spent that time in minutes in the direct care of this critically ill patient, excluding procedure time. ED Disposition Clinical Impression: Vaginal bleeding Disposition: DC-01 TO HOME OR SELFCARE Is pt being admited?: No Does the pt Need Aspirin: No Condition: Stable Instructions: Menstruation (ED), Ovarian Cyst (ED) Prescriptions: Acetaminophen [Non-Aspirin Extra Strength] 500 mg PO Q8H PRN #30 tablet PRN Reason: Pain Acetaminophen/Codeine [Tylenol /Codeine # 3 tab] 1 tab PO Q6H PRN #15 tab PRN Reason: Pain Ferrous Sulfate [Iron] 325 mg PO QDAY #30 tablet Referrals: [facility] [Provider Group] - 3-5 Days [facility] [Provider Group] - 3-5 Days [facility] [Provider Group] - 3-5 Days [facility] [Outside] - 3-5 Days [facility] [Outside] - 3-5 Days Forms: Work/School Release Form(ED) Time of Disposition: 19:53
[2017-08-29] MEDS ORDERED: ZOFRAN ODT PO ONE (19:58)
[2017-08-29] MEDS ORDERED: NORCO 5/325 PO ONE (19:58)
== END 2017-08-29 20:04 | disposition home or self-care (01) ==
LOC: ED 14:04
DX: N93.9 Abnormal uterine and vaginal bleeding, unspecified (principal); R10.30 Lower abdominal pain, unspecified; I10 Essential (primary) hypertension
CPT/HCPCS: 36415; 76830; 76856; 80048; 81001; 84703; 85025; 96374; 96375; 99284; J1885; J2405; Q0162

== ENCOUNTER 2017-11-03 16:59 | Emergency (ER) | payer MEDICAID ==
[2017-11-03 17:05] VITALS: BP 120/85
[2017-11-03] MEDS ORDERED: ZOFRAN IV ONE (17:29)
[2017-11-03] MEDS ORDERED: TORADOL IV ONE (17:29)
[2017-11-03] MEDS ORDERED: NACL 0.9% 1000 ML 1,000 ML IV ONE (17:29)
--- NOTE | 2017-11-03 17:29 | Emergency Department Report ---
Blank Doc - Documentation Documentation: Patient is a 52-year-old female with a past history of ovarian cysts diagnosed in August 2017 is large. Patient is presenting today with lower abdominal pain. Patient states pain has not improved since her last visit is now she's having nausea vomiting. Patient states she just finished her menses and which was heavy with clots and she noted she also is feeling dizzy and lightheaded. Patient will get IV fluids will check last measured hemoglobin is low do not feel as though recent imaging is necessary at this time. Urinalysis will also be checked as well
[2017-11-03 17:49] LABS: Basophils % (Auto) 0.5 % (0.0-1.8); Eosinophils # (Auto) 0.2 K/mm3 (0.0-0.4); Eosinophils % (Auto) 2.2 % (0.0-4.3); Hematocrit 38.3 % (30.3-42.9); Hemoglobin 13.1 gm/dl (10.1-14.3); Lymphocytes # (Auto) 2.2 K/mm3 (1.2-5.4); Mean Corpuscular HGB Conc 34 % (30-34); Mean Corpuscular Hemoglobin 31 pg (28-32); Mean Corpuscular Volume 91 fl (79-97); Monocytes # (Auto) 0.4 K/mm3 (0.0-0.8); Monocytes % (Auto) 6.3 % (0.0-7.3); Platelet Count 312 K/mm3 (140-440); Red Blood Count 4.22 M/mm3 (3.65-5.03); Red Cell Distribution Width 12.8 % (13.2-15.2)
[2017-11-03 18:08] LABS: BUN/Creatinine Ratio 14; Blood Urea Nitrogen 11 mg/dL (7-17); Calcium 8.4 mg/dL (8.4-10.2); Hemolysis Index 9
[2017-11-03 19:14] LABS: HCG Qualitative,Urine Negative (Negative)
[2017-11-03 19:20] LABS: Bilirubin,Urine NEG (Negative); Blood,Urine NEG (Negative); Color,Urine Yellow (Yellow); Nitrite,Urine NEG (Negative); Protein,Urine <15 mg/dL mg/dL (Negative)
--- NOTE | 2017-11-03 19:38 | Emergency Department Report ---
Vomiting/Diarrhea - HPI Chief Complaint: Abdominal Pain Stated Complaint: ABD PAIN Time Seen by Provider: 11/03/17 17:17 Pain Location: Suprapubic Pain Severity: Moderate Symptoms: No Watery Diarrhea, No Bloody diarrhea Other History: Patient is a 52-year-old female with a past history of ovarian cysts diagnosed in August 2017 is large. Patient is presenting today with lower abdominal pain. Patient states pain has not improved since her last visit is now she's having nausea vomiting. Patient states she just finished her menses and which was heavy with clots and she noted she also is feeling dizzy and lightheaded. ED Review of Systems ROS: Stated complaint: ABD PAIN Other details as noted in HPI Comment: All other systems reviewed and negative ED Past Medical Hx - Past Medical History Hx Hypertension: Yes Hx CVA: Yes (TIA's) Hx Congestive Heart Failure: No Hx Diabetes: No Hx Headaches / Migraines: Yes Hx Seizures: Yes (03/26/2016) Hx Psychiatric Treatment: Yes (COCAINE DRUG ABUSE, DEPRESSION, anxeity) Hx Asthma: No Hx COPD: No Additional medical history: fibromyalgia,ovarian cyst. MS. fatty liver - Surgical History Additional Surgical History: c/s x 2, tubal ligation - Social History Smoking Status: Never Smoker Substance Use Type: None - Medications Home Medications: Home Medications Medication Instructions Recorded Confirmed Last Taken Type Aspirin [Aspirin BABY CHEW TAB] 81 mg PO QDAY #30 tab.chew 10/22/15 06/16/16 1 Day Ago Rx ~06/09/16 81 Divalproex [Sloan Cunha] 1,000 mg PO HS #30 tablet 10/22/15 06/16/16 1 Day Ago Rx ~06/09/16 1000 Nitroglycerin [Nitrostat] 0.4 mg SL Q5M PRN #30 tablet 10/22/15 06/16/16 1 Day Ago Rx ~06/09/16 0.4 Simvastatin [Zocor TAB] 10 mg PO QHS #30 tablet 10/22/15 06/16/16 1 Day Ago Rx ~06/09/16 10 Trazodone HCl 150 mg PO HS #30 tablet 10/22/15 06/16/16 1 Day Ago Rx ~06/09/16 150 Cyclobenzaprine [Flexeril 10 MG 10 mg PO TID PRN #15 tablet 03/10/16 06/16/16 1 Day Ago Rx TAB] ~06/09/16 10 DULoxetine [Cymbalta] 30 mg PO QDAY 30 Days capsule 03/30/16 06/16/16 1 Day Ago Rx ~06/09/16 30 Gabapentin [Neurontin] 600 mg PO QPM 30 Days capsule 03/30/16 06/16/16 1 Day Ago Rx ~06/09/16 600 oxyCODONE /ACETAMINOPHEN [Percocet 1 tab PO Q6H PRN #10 tablet 03/30/16 Unknown Rx 5/325 mg] Clopidogrel Bisulfate [Plavix] 75 mg PO QDAY #30 tablet 04/13/16 06/16/16 1 Day Ago Rx ~06/09/16 75 traMADol [Ultram] 50 mg PO Q6HR PRN #14 tablet 04/13/16 06/16/16 Unknown Rx Dicyclomine [Bentyl] 10 mg PO QID PRN #20 capsule 06/10/16 06/16/16 Unknown Rx Famotidine [Pepcid] 20 mg PO BID #10 tablet 06/10/16 06/16/16 Unknown Rx Ondansetron [Zofran Odt] 4 mg PO QID PRN #20 tab.rapdis 06/10/16 06/16/16 Unknown Rx Acetaminophen/Codeine [Tylenol #3] 1 tab PO Q6H PRN #20 tab 06/16/16 Unknown Rx Magnesium Oxide/Magnesium 400 mg PO DAILY 06/16/16 06/16/16 Unknown History [Magnesium 300 mg Capsule] HYDROcodone/APAP 7.5-325 [[place] 1 each PO Q8HR PRN #12 tablet 11/07/16 Unknown Rx 7.5-325 mg TAB] traMADol [Ultram 50 MG tab] 50 mg PO Q6HR PRN #20 tablet 04/10/17 Unknown Rx Acetaminophen [Non-Aspirin Extra 500 mg PO Q8H PRN #30 tablet 08/29/17 Unknown Rx Strength] Acetaminophen/Codeine [Tylenol 1 tab PO Q6H PRN #15 tab 08/29/17 Unknown Rx /Codeine # 3 tab] Ferrous Sulfate [Iron] 325 mg PO QDAY #30 tablet 08/29/17 Unknown Rx Nitrofurantoin Monohyd/M-Cryst 100 mg PO BID #14 capsule 11/03/17 Unknown Rx [Macrobid 100 mg Capsule] Ondansetron [Zofran Odt] 4 mg PO Q8HR #10 tab.rapdis 11/03/17 Unknown Rx traMADol [Ultram] 50 mg PO Q6HR PRN 12 Days tablet 11/03/17 Unknown Rx Vomiting Diarrhea Exam - Exam General: Vital signs noted. No distress. Alert and acting appropriately. HEENT: Yes Moist Mucous Membranes, No Pharyngeal Erythema, No Pharyngeal Exudates, No Rhinorrhea, No Conjuctival Injection, No Frontal Tenderness, No Maxillary Tenderness Neck: No Adenopathy, No Rigidity Lungs: Yes Clear Lung Sounds, Yes Good Air Exchange, No Wheezes, No Stridor, No Cough, No Nasal Flaring, No Retractions, No Use of Accessory Muscles Heart exam: Regular: Yes, Murmur: No, Tachycardia: No Abdomen: Tenderness: Yes (pubic), Peritoneal Signs: No, Distention: No, Hyperactive Bowel sounds: No Skin exam: Rash: No, Edema: No, Normal turgor: Yes Neurologic: Alert and oriented, no deficits. Musculoskeletal: Unremarkable. ED Course Vital Signs 11/03/17 17:03 Temperature 98.2 F Pulse Rate 86 Respiratory 18 Rate Blood Pressure 120/85 O2 Sat by Pulse 100 Oximetry ED Medical Decision Making - Lab Data Result diagrams: 11/03/17 17:39 11/03/17 17:39 Lab Results 11/03/17 11/03/17 11/03/17 Range/Units 17:39 17:39 Unknown WBC 7.0 (4.5-11.0) K/mm3 RBC 4.22 (3.65-5.03) M/mm3 Hgb 13.1 (10.1-14.3) gm/dl Hct 38.3 (30.3-42.9) % MCV 91 (79-97) fl MCH 31 (28-32) pg MCHC 34 (30-34) % RDW 12.8 L (13.2-15.2) % Plt Count 312 (140-440) K/mm3 Lymph % (Auto) 32.0 (13.4-35.0) % [place] % (Auto) 6.3 (0.0-7.3) % Eos % (Auto) 2.2 (0.0-4.3) % Baso % (Auto) 0.5 (0.0-1.8) % Lymph # 2.2 (1.2-5.4) K/mm3 [place] # 0.4 (0.0-0.8) K/mm3 Eos # 0.2 (0.0-0.4) K/mm3 Baso # 0.0 (0.0-0.1) K/mm3 Seg Neutrophils % 59.0 (40.0-70.0) % Seg Neutrophils # 4.1 (1.8-7.7) K/mm3 Sodium 138 (137-145) mmol/L Potassium 4.0 (3.6-5.0) mmol/L Chloride 100.9 (98-107) mmol/L Carbon Dioxide 23 (22-30) mmol/L Anion Gap 18 mmol/L BUN 11 (7-17) mg/dL Creatinine 0.8 (0.7-1.2) mg/dL Estimated GFR > 60 ml/min BUN/Creatinine Ratio 14 % Glucose 109 H (65-100) mg/dL Calcium 8.4 (8.4-10.2) mg/dL Urine Color Yellow (Yellow) Urine Turbidity Clear (Clear) Urine pH 7.0 (5.0-7.0) Ur Specific [place] 1.024 (1.003-1.030) Urine Protein <15 mg/dl (Negative) mg/dL Urine Glucose (UA) Neg (Negative) mg/dL Urine Ketones Neg (Negative) mg/dL Urine Blood Neg (Negative) Urine Nitrite Neg (Negative) Ur Reducing Substances Not Reportable Urine Bilirubin Neg (Negative) Urine Ictotest Not Reportable Urine Urobilinogen 4.0 (<2.0) mg/dL Ur Leukocyte Esterase Tr (Negative) Urine WBC (Auto) 4.0 (0.0-6.0) /HPF Urine RBC (Auto) 12.0 (0.0-6.0) /HPF U Epithel Cells (Auto) 3.0 (0-13.0) /HPF Urine HCG, Qual Negative (Negative) Critical care attestation.: If time is entered above; I have spent that time in minutes in the direct care of this critically ill patient, excluding procedure time. ED Disposition Clinical Impression: UTI (urinary tract infection) Qualifiers: Urinary tract infection type: acute cystitis Hematuria presence: without hematuria Qualified Code(s): N30.00 - Acute cystitis without hematuria Ovarian cyst Qualifiers: Laterality: unspecified laterality Qualified Code(s): N83.209 - Unspecified ovarian cyst, unspecified side Gastritis Qualifiers: Gastritis type: other gastritis Gastritis bleeding: without bleeding Disposition: DC-01 TO HOME OR SELFCARE Is pt being admited?: No Does the pt Need Aspirin: No Condition: Stable Instructions: Abdominal Pain (ED) Prescriptions: Nitrofurantoin Monohyd/M-Cryst [Macrobid 100 mg Capsule] 100 mg PO BID #14 capsule Ondansetron [Zofran Odt] 4 mg PO Q8HR #10 tab.rapdis traMADol [Ultram] 50 mg PO Q6HR PRN 12 Days tablet PRN Reason: Pain
== END 2017-11-03 19:48 | disposition home or self-care (01) ==
LOC: ED 16:59
DX: N30.00 Acute cystitis without hematuria (principal); N83.209 Unspecified ovarian cyst, unspecified side; K29.70 Gastritis, unspecified, without bleeding; Z86.73 Personal history of transient ischemic attack (TIA), and cerebral infarction without residual deficits; G43.909 Migraine, unspecified, not intractable, without status migrainosus; F32.9 Major depressive disorder, single episode, unspecified
CPT/HCPCS: 36415; 80048; 81001; 81025; 85025; 96361; 96374; 96375; 99283; J1885; J2405; J7030

== ENCOUNTER 2017-12-07 08:26 | Emergency (ER) | payer MEDICAID ==
[2017-12-07 09:15] LABS: Basophils % (Auto) 0.3 % (0.0-1.8); Eosinophils # (Auto) 0.2 K/mm3 (0.0-0.4); Eosinophils % (Auto) 3.5 % (0.0-4.3); Hematocrit 41.5 % (30.3-42.9); Hemoglobin 13.8 gm/dl (10.1-14.3); Lymphocytes # (Auto) 1.7 K/mm3 (1.2-5.4); Lymphocytes % (Auto) 31.4 % (13.4-35.0); Mean Corpuscular HGB Conc 33 % (30-34); Mean Corpuscular Hemoglobin 30 pg (28-32); Mean Corpuscular Volume 91 fl (79-97); Monocytes # (Auto) 0.2 K/mm3 (0.0-0.8); Monocytes % (Auto) 4.4 % (0.0-7.3); Platelet Count 265 K/mm3 (140-440); Red Blood Count 4.54 M/mm3 (3.65-5.03); Red Cell Distribution Width 13.5 % (13.2-15.2)
[2017-12-07 09:36] LABS: Alanine Aminotransferase 7 units/L (7-56); Albumin 3.8 g/dL (3.9-5); BUN/Creatinine Ratio 20; Blood Urea Nitrogen 14 mg/dL (7-17); Calcium 8.5 mg/dL (8.4-10.2); Hemolysis Index 6
--- NOTE | 2017-12-07 15:15 | Emergency Department Report ---
Blank Doc - Documentation Documentation: Patient is a 52-year-old female presents to the emergency room with complaints of left lower quadrant pain 1 week. Patient also complains of vomiting blood 3 days. Patient describes as bright red blood in her vomitus. Patient states that she has a left ovarian cyst that she is seeing a specialist for however this pain that she is having is more intense. Patient states that she is not taking any [id number] medications at this time. She patient states she is only taking her Tylenol 3 as prescribed from her specialist. Patient has a past medical history of hypertension fibromyalgia and ovarian cyst. Patient denies chest pain or shortness of breath. Patient denies fever and chills. Will order a patient a CT scan of her abdomen and pelvis. Will transfer patient to main ED for further evaluation and management.
--- NOTE | 2017-12-07 16:18 | Cat Scan Report ---
FINAL REPORT PROCEDURE: CT ABDOMEN PELVIS WO CON TECHNIQUE: Computerized axial tomography of the abdomen and pelvis was performed without intravenous contrast. This study is performed without intravascular contrast material and its sensitivity for abdominal and pelvic pathology, including neoplasms, inflammation, abscess, free fluid, thrombosis, arterial dissection and infarction, is reduced compared with a contrast enhanced study. HISTORY: abd pain COMPARISON: Prior CT scan 06/10/2016 FINDINGS: Lower Lung benjamin: No focal abnormality seen. Upper Abdomen: The liver, gallbladder, adrenal glands pancreas and spleen are unremarkable. Kidneys, Ureters and Urinary bladder: 2.5 millimeter nonobstructing calculus seen in the upper 3rd of the right kidney. The kidneys, the ureters and urinary bladder otherwise are unremarkable. Retroperitoneum: Abdominal aorta is normal in appearance. No aneurysm is seen. Nonspecific subcentimeter lymph nodes are seen in the retroperitoneum. No pathologically enlarged lymph nodes are identified. Bowel: Moderate amount of stool seen throughout most of the colon. The patient may be constipated. No focal bowel loop abnormalities are seen. Normal-appearing appendix is seen in the right lower quadrant. Reproductive organs: A cyst previously visualized in the left adnexa is no longer visualized. There is a new nonspecific 2.4 centimeters cyst in the right adnexa likely within the right ovary. Small nonspecific peripheral calcification measuring 1.7 millimeters visualized the uterus is unremarkable. Other: No acute bony abnormalities are seen. IMPRESSION: Small nonobstructing calculus right kidney as described. Stool pattern as described. The patient may be constipated. Bowel loops otherwise unremarkable. Cyst previously visualized in the left adnexa is no longer visualized. There is a new nonspecific 2.4 centimeters cyst with small peripheral calcification in the right adnexa likely within the right ovary. Consider follow-up pelvic ultrasound for further characterization given the patient's age.
--- NOTE | 2017-12-07 22:31 | Emergency Department Report ---
HPI - General Chief Complaint: Abdominal Pain Time Seen by Provider: 12/07/17 15:12 - HPI HPI: 52-year-old [place] female coming in is left flank and left lower quadrant pain starting 4 days ago. Patient has a history of ovarian cysts. She states that her pain is accompanied by nausea, vomiting and no urinary symptoms or diarrhea. Patient has not taking any medication at home for his symptoms. She denies any exacerbating factors. She denies any alleviating factors. She denies any recent travel, or unusual foods. She denies any sick contacts. MD Complaint: abdominal pain -: Gradual Location: Left flank Radiation: none Migration to: no migration Severity scale (0 -10): 10 Quality: sharp Improves With: nothing Associated Symptoms: nausea, vomiting, chills ED Past Medical Hx - Past Medical History Hx Hypertension: Yes Hx CVA: Yes (TIA's) Hx Congestive Heart Failure: No Hx Diabetes: No Hx Headaches / Migraines: Yes Hx Seizures: Yes (03/26/2016) Hx Psychiatric Treatment: Yes (COCAINE DRUG ABUSE, DEPRESSION, anxeity) Hx Asthma: No Hx COPD: No Additional medical history: fibromyalgia,ovarian cyst. MS. fatty liver - Surgical History Additional Surgical History: c/s x 2, tubal ligation - Social History Smoking Status: Never Smoker - Medications Home Medications: Home Medications Medication Instructions Recorded Confirmed Last Taken Type Aspirin [Aspirin BABY CHEW TAB] 81 mg PO QDAY #30 tab.chew 10/22/15 06/16/16 1 Day Ago Rx ~06/09/[address] [Sloan Cunha] 1,000 mg PO HS #30 tablet 10/22/15 06/16/16 1 Day Ago Rx ~06/09/16 1000 Nitroglycerin [Nitrostat] 0.4 mg SL Q5M PRN #30 tablet 10/22/15 06/16/16 1 Day Ago Rx ~06/09/16 0.4 Simvastatin [Zocor TAB] 10 mg PO QHS #30 tablet 10/22/15 06/16/16 1 Day Ago Rx ~06/09/16 10 Trazodone HCl 150 mg PO HS #30 tablet 10/22/15 06/16/16 1 Day Ago Rx ~06/09/16 150 Cyclobenzaprine [Flexeril 10 MG 10 mg PO TID PRN #15 tablet 03/10/16 06/16/16 1 Day Ago Rx TAB] ~06/09/16 10 DULoxetine [Cymbalta] 30 mg PO QDAY 30 Days capsule 03/30/16 06/16/16 1 Day Ago Rx ~06/09/16 30 Gabapentin [Neurontin] 600 mg PO QPM 30 Days capsule 03/30/16 06/16/16 1 Day Ago Rx ~06/09/16 600 oxyCODONE /ACETAMINOPHEN [Percocet 1 tab PO Q6H PRN #10 tablet 03/30/16 Unknown Rx 5/325 mg] Clopidogrel Bisulfate [Plavix] 75 mg PO QDAY #30 tablet 04/13/16 06/16/16 1 Day Ago Rx ~06/09/16 75 traMADol [Ultram] 50 mg PO Q6HR PRN #14 tablet 04/13/16 06/16/16 Unknown Rx Dicyclomine [Bentyl] 10 mg PO QID PRN #20 capsule 06/10/16 06/16/16 Unknown Rx Famotidine [Pepcid] 20 mg PO BID #10 tablet 06/10/16 06/16/16 Unknown Rx Ondansetron [Zofran Odt] 4 mg PO QID PRN #20 tab.rapdis 06/10/16 06/16/16 Unknown Rx Acetaminophen/Codeine [Tylenol #3] 1 tab PO Q6H PRN #20 tab 06/16/16 Unknown Rx Magnesium Oxide/Magnesium 400 mg PO DAILY 06/16/16 06/16/16 Unknown History [Magnesium 300 mg Capsule] HYDROcodone/APAP 7.5-325 [[place] 1 each PO Q8HR PRN #12 tablet 11/07/16 Unknown Rx 7.5-325 mg TAB] traMADol [Ultram 50 MG tab] 50 mg PO Q6HR PRN #20 tablet 04/10/17 Unknown Rx Acetaminophen [Non-Aspirin Extra 500 mg PO Q8H PRN #30 tablet 08/29/17 Unknown Rx Strength] Acetaminophen/Codeine [Tylenol 1 tab PO Q6H PRN #15 tab 08/29/17 Unknown Rx /Codeine # 3 tab] Ferrous Sulfate [Iron] 325 mg PO QDAY #30 tablet 08/29/17 Unknown Rx Nitrofurantoin Monohyd/M-Cryst 100 mg PO BID #14 capsule 11/03/17 Unknown Rx [Macrobid 100 mg Capsule] Ondansetron [Zofran Odt] 4 mg PO Q8HR #10 tab.rapdis 11/03/17 Unknown Rx traMADol [Ultram] 50 mg PO Q6HR PRN 12 Days tablet 11/03/17 Unknown Rx Ondansetron [Zofran TAB] 4 mg PO Q8HR PRN #20 tablet 12/07/17 Unknown Rx ED Review of Systems ROS: Stated complaint: ABDOMINAL PAIN Other details as noted in HPI Physical Exam - Physical Exam Vital Signs: Vital Signs 12/07/17 08:37 Temperature 97.9 F Pulse Rate 66 Respiratory 16 Rate Blood Pressure 98/65 O2 Sat by Pulse 99 Oximetry Physical Exam: - Physical Exam Physical Exam: - General Limitations: No Limitations General appearance: alert, in no apparent distress, obese - Head Head exam: Present: atraumatic, normocephalic - Eye Eye exam: Present: normal appearance - ENT ENT exam: Present: mucous membranes moist - Neck Neck exam: Present: normal inspection - Respiratory Respiratory exam: Present: normal lung sounds bilaterally. Absent: respiratory distress - Cardiovascular Cardiovascular Exam: Present: normal rhythm, tachycardia. Absent: systolic murmur, diastolic murmur, rubs, gallop - GI/Abdominal GI/Abdominal exam: Present: soft, normal bowel sounds - Extremities Exam Extremities exam: Present: normal inspection - Back Exam Back exam: Present: normal inspection - Neurological Exam Neurological exam: Present: alert, oriented X3 - Psychiatric Psychiatric exam: normal affect and mood - Skin Skin exam: Present: warm, dry, intact, normal color. Absent: rash ED Course Vital Signs 12/07/17 08:37 Temperature 97.9 F Pulse Rate 66 Respiratory 16 Rate Blood Pressure 98/65 O2 Sat by Pulse 99 Oximetry - Reevaluation(s) Reevaluation #1: 12/07/17 22:28 Patient refused admission wants to go home. ED Medical Decision Making - Lab Data Result diagrams: 12/07/17 08:58 12/07/17 08:58 Critical care attestation.: If time is entered above; I have spent that time in minutes in the direct care of this critically ill patient, excluding procedure time. ED Disposition Clinical Impression: Abdominal pain Qualifiers: Abdominal location: generalized Qualified Code(s): R10.84 - Generalized abdominal pain Disposition: DC- TO HOME OR SELFCARE Is pt being admited?: No Does the pt Need Aspirin: No Condition: Stable Instructions: Abdominal Pain (ED) Prescriptions: Ondansetron [Zofran TAB] 4 mg PO Q8HR PRN #20 tablet PRN Reason: Nausea Referrals: PRIMARY CARE, [Primary Care Provider] - 3-5 Days
[2017-12-07 22:48] VITALS: BP 100/65
== END 2017-12-07 22:46 | disposition home or self-care (01) ==
LOC: ED 08:26
DX: R10.32 Left lower quadrant pain (principal); R11.2 Nausea with vomiting, unspecified; I10 Essential (primary) hypertension; G43.909 Migraine, unspecified, not intractable, without status migrainosus; F14.10 Cocaine abuse, uncomplicated; Z86.73 Personal history of transient ischemic attack (TIA), and cerebral infarction without residual deficits; Z79.82 Long term (current) use of aspirin
CPT/HCPCS: 36415; 74176; 80053; 85025; 99284

== ENCOUNTER 2018-01-21 10:03 | Outpatient (CLI) | payer MEDICAID ==
--- NOTE | 2018-01-22 07:04 | Ultrasound Report ---
FINAL REPORT EXAM: US PELVIC COMPLETE HISTORY: OVARIAN MASS TECHNIQUE: Transabdominal imaging was obtained of the pelvis. FINDINGS: The uterus is retroverted measuring 6.5 cm x 3.7 cm x 4.2 cm. The myometrium is homogeneous. The endometrial thickness is 4.7 mm. Free fluid is not seen. The right ovary is normal size contour and echotexture measuring 2.1 cm x 0.9 cm x 2 cm. The left ovary is normal size contour and echotexture measuring 2.1 cm 1.4 cm 1.7 cm. There are no definite adnexal masses. The study is limited by overlying bowel gas. IMPRESSION: Normal-appearing retroverted uterus and ovaries. No definite adnexal mass identified. The study is limited by obscuring bowel gas.
--- NOTE | 2018-01-22 07:07 | Ultrasound Report ---
FINAL REPORT EXAM: US TRANSVAGINAL HISTORY: OVARIAN MASS TECHNIQUE: Routine transvaginal imaging was obtained of the pelvis. FINDINGS: The uterus is retroverted measuring 6.5 cm x 3.7 cm x 4.2 cm. The myometrium is homogeneous. There is a small nabothian cysts in the cervix. The endometrial thickness is 4.7 mm. Free fluid is not seen. The right ovary is normal size contour echotexture measuring 2.1 cm x 0.9 cm x 2 cm. The left ovary is normal size contour and echotexture measuring 2.1 cm x 1.4 cm x 1.7 cm. Study is somewhat limited because of overlying bowel gas in the pelvis. IMPRESSION: Normal retroverted uterus and ovaries. No definite adnexal mass seen The study is somewhat limited because of obscuring bowel gas in the pelvis.
== END 2018-01-21 10:04 | disposition home or self-care (01) ==
LOC: US 10:03
PROVIDERS: ATTEND Obstetrics & Gynecology Gynecologic Oncology
DX: N83.9 Noninflammatory disorder of ovary, fallopian tube and broad ligament, unspecified (principal); N88.8 Other specified noninflammatory disorders of cervix uteri
CPT/HCPCS: 76830; 76856